=== PATIENT | female | born 1980 | race Caucasian/White ===

== ENCOUNTER 2017-06-12 07:17 | Emergency (ER) | payer OTHER ==
--- NOTE | 2017-06-12 08:02 | UC ---
Abdominal Pain Female HPI - HPI Summary HPI Summary: 36 yo female with 1-2 day hx of waxing and waning left UQ/left flank pain Positional (best when laying on left side/worse if she rolls on right) Worse about 1 hour after eating or drinking anorexic and nausea no diarrhea no blood in stool or black/tarry stools no fever ? chills no URI symptoms earlier in week entire family had stomach bug she has been using a lot of TUMS lately Visiting family and heading home today - History of Current Complaint Chief Complaint: UCGI Stated Complaint: NAUSEA/LFT FLANK PAIN Time Seen by Provider: 06/12/17 07:30 Hx Obtained From: Patient Hx Last Menstrual Period: unknown, IUD Onset/Duration: Gradual Onset, Lasting Days Timing: Constant Severity Initially: Mild Severity Currently: Mild Pain Intensity: 3 Pain Scale Used: 0-10 Numeric Location: Discrete At: LUQ Radiates: Yes Radiates to: Flank Character: Dull Aggravating Factor(s): Food, Other: - position Associated Signs and Symptoms: Positive: Nausea Allergies/Adverse Reactions: Allergies Allergy/AdvReac Type Severity Reaction Status Date / Time Latex Allergy Hives Verified 06/12/17 07:29 PMH/Surg Hx/FS Hx/Imm Hx Previously Healthy: Yes - Surgical History Surgical History: None - Family History Known Family History: Positive: Diabetes - grandparent Negative: Cardiac Disease, Hypertension - Social History Alcohol Use: Rare Substance Use Type: None Smoking Status (MU): Never Smoked Tobacco Review of Systems Constitutional: Negative Skin: Negative Eyes: Negative ENT: Negative Respiratory: Negative Cardiovascular: Negative Gastrointestinal: Abdominal Pain, Nausea Genitourinary: Negative Motor: Negative Neurovascular: Negative Musculoskeletal: Negative Neurological: Negative Psychological: Negative Is Patient Immunocompromised?: No All Other Systems Reviewed And Are Negative: Yes Physical Exam Triage Information Reviewed: Yes Appearance: Well-Appearing, No Pain Distress, Well-Nourished Vital Signs: Initial Vital Signs Temp 98.7 F 06/12/17 07:25 Pulse 64 06/12/17 07:25 Resp 14 06/12/17 07:25 BP 105/62 06/12/17 07:25 Pulse Ox 99 06/12/17 07:25 Vital Signs Reviewed: Yes Eyes: Positive: Conjunctiva Clear ENT: Positive: Hearing grossly normal. Negative: Nasal congestion, Nasal drainage, Trismus, Muffled voice, Hoarse voice Neck: Positive: Supple Respiratory: Positive: Lungs clear, Normal breath sounds, No respiratory distress, No accessory muscle use Cardiovascular: Positive: RRR, No Murmur Abdomen Description: Positive: No Organomegaly, Soft. Negative: Nontender - mild tenderness LUQ, CVA Tenderness (R), CVA Tenderness (L), Distended, Guarding , Hepatomegaly, Peritoneal Signs, Splenomegaly Bowel Sounds: Positive: Present Musculoskeletal: Positive: ROM Intact, No Edema Neurological: Positive: Alert Psychological Exam: Normal Skin Exam: Normal Abd Pain Female Course/Dx - Course Course Of Treatment: Decline transfer to [facility]/declines CT - Differential Dx/Diagnosis Provider Diagnoses: LUQ abd pain. ?gastritis vs PUD vs other Discharge - Discharge Plan Condition: Stable Disposition: HOME Prescriptions: Omeprazole [Prilosec] 20 mg PO DAILY #7 cap Ondansetron TAB* [Zofran Tab*] 4 mg PO Q6H PRN #6 tab PRN Reason: Nausea Patient Education Materials: Flank Pain (ED) Referrals: No Primary Care Phys,NOPCP [Primary Care Provider] - Additional Instructions: I am unsure of the cause of your symptoms To nearest ER for increased pain/fever or vomiting I suggest you see your MD first available appt
== END 2017-06-12 08:02 | disposition home or self-care (01) ==
LOC: UCCORT 07:17
DX: R10.12 Left upper quadrant pain (principal); Z32.02 Encounter for pregnancy test, result negative
CPT/HCPCS: 81003; 84702; 99202; G0463